=== PATIENT | male | born 1970 | race Caucasian/White ===

== ENCOUNTER 2020-01-11 13:20 | Emergency (ER) | payer OTHER ==
--- NOTE | 2020-01-11 13:24 | ERPHSYRPT ---
- History of Present Illness Time Seen by Provider: 01/11/20 13:24 Source: patient Exam Limitations: no limitations Physician History: 49-year-old white male presents with 3-day history of headache and neck pain as well as some photophobia. Patient has not had any known exposure to individuals with viral or bacterial illness. Patient only took Tylenol for his pain once yesterday. He has had no measurable fevers. He has had no nausea vomiting or diarrhea. He has no abdominal pain. Patient does not have a history of migraine headaches. Does have some body aches. Timing/Duration: day(s) (3), other (unchanged) Quality: aching Head Pain Location: global Severity of Pain-Max: mild Severity of Pain-Current: mild Recent Head Trauma: no recent headache/trauma Modifying Factors: Improves With: exposure to light, noise Associated Symptoms: neck pain, sensitive to light Previous symptoms: no prior history Allergies/Adverse Reactions: No Known Drug Allergies Allergy (Verified 01/11/20 13:35) Home Medications: Aspirin 81 mg PO DAILY 06/15/14 [History] Pravastatin Sodium 10 mg PO DAILY 05/24/15 [History] Hx Tetanus, Diphtheria Vaccination/Date Given: (MORE THAN 5) Hx Influenza Vaccination/Date Given: No Hx Pneumococcal Vaccination/Date Given: No - Review of Systems Constitutional: No Symptoms Eyes: Other (Sensitivity to light) Ears, Nose, & Throat: No Symptoms Respiratory: No Symptoms Cardiac: No Symptoms Abdominal/Gastrointestinal: No Symptoms Genitourinary Symptoms: No Symptoms Musculoskeletal: No Symptoms Skin: No Symptoms Neurological: No Symptoms Psychological: No Symptoms Endocrine: No Symptoms Hematologic/Lymphatic: No Symptoms Immunological/Allergic: No Symptoms All Other Systems: Reviewed and Negative - Past Medical History Pertinent Past Medical History: Yes Neurological History: No Pertinent History ENT History: No Pertinent History Cardiac History: High Cholesterol Respiratory History: No Pertinent History Endocrine Medical History: No Pertinent History Musculoskeletal History: No Pertinent History GI Medical History: No Pertinent History History: No Pertinent History Psycho-Social History: No Pertinent History Male Reproductive Disorders: No Pertinent History - Past Surgical History Past Surgical History: No Neuro Surgical History: No Pertinent History Cardiac: No Pertinent History Respiratory: No Pertinent History Gastrointestinal: No Pertinent History Genitourinary: No Pertinent History Musculoskeletal: No Pertinent History Male Surgical History: Vasectomy - Social History Smoking Status: Never smoker Exposure to second hand smoke: No Drug Use: none Patient Lives Alone: No - Nursing Vital Signs Nursing Vital Signs: Initial Vital Signs Temperature 98.5 F 01/11/20 13:37 Pulse Rate 74 01/11/20 13:37 Respiratory Rate 18 01/11/20 13:37 Blood Pressure 137/94 01/11/20 13:37 O2 Sat by Pulse Oximetry 100 01/11/20 13:37 Pain Scale Pain Intensity 10 - Physical Exam General Appearance: no apparent distress, alert, anxiety Eye Exam: PERRL/EOMI, eyes nml inspection Ears, Nose, Throat Exam: normal ENT inspection, moist mucous membranes Neck Exam: normal inspection, supple, full range of motion, other (No midline tenderness but tenderness on his bilateral paraspinous muscles.) Respiratory Exam: normal breath sounds, lungs clear, airway intact, No chest tenderness, No respiratory distress Cardiovascular Exam: regular rate/rhythm, normal heart sounds, normal peripheral pulses Gastrointestinal/Abdominal Exam: soft, normal bowel sounds, No tenderness Back Exam: normal inspection Extremity Exam: normal inspection, normal range of motion, pelvis stable Mental Status Exam: alert, oriented x 3, cooperative bar steward Exam: normal hearing, normal speech, PERRL, tongue midline Coordination/Gait Exam: normal finger to nose, normal gait, normal cerebellar function Motor/Sensory Exam: no motor deficit, no sensory deficit, no pronator drift Skin Exam: normal color, warm, dry Lymphatic Exam: No adenopathy SpO2 Interpretation: normal O2 Delivery: Room Air - Course Nursing assessment & vital signs reviewed: Yes Ordered Tests: Active Orders 24 hr Category Date Time Status IV Insertion STAT Care 01/11/20 14:14 Active Pulse Oximetry (ED) STAT Care 01/11/20 14:14 Active HEAD WITHOUT CONTRAST [CT] Stat Exams 01/11/20 14:14 Completed CBC W DIFF Stat Lab 01/11/20 14:14 Completed CMP Stat Lab 01/11/20 14:25 Completed Erythrocyte Sedimentation Rate Stat Lab 01/11/20 14:14 Completed Manual Differential NC Stat Lab 01/11/20 14:14 Completed Maries Screen Stat Lab 01/11/20 14:25 Completed Medication Summary Discontinued Medications Generic Name Dose Route Start Last Admin Trade Name Freq PRN Reason Stop Dose Admin Hydromorphone HCl 1 mg 01/11/20 15:49 Hydromorphone 1 Mg/Ml Ampule IV 01/11/20 15:50 STAT ONE Promethazine HCl 25 mg 01/11/20 15:49 Phenergan 25 Mg Inj IM 01/11/20 15:50 STAT ONE Lab/Rad Data: Laboratory Result Diagrams 01/11/20 14:14 01/11/20 14:25 Laboratory Results 01/11/20 01/11/20 01/11/20 Range/Units 14:25 14:25 14:25 WBC (4.0-10.5) K/mm3 RBC (4.1-5.6) M/mm3 Hgb (12.5-18.0) gm/dl Hct (42-50) % MCV (78-100) fl MCH (26-32) pg MCHC (32-36) g/dl RDW (11.5-14.0) % Plt Count (150-450) K/mm3 MPV (7.5-11.0) fl Segmented Neutrophils (36.-66.) % Band Neutrophils (0.0-2.0) % Lymphocytes (Manual) (24-44) % Monocytes (Manual) (0.0-12.0) % Eosinophils (Manual) (0.00-3.0) % Metamyelocytes % Atypical Lymphocytes % Toxic Granulation Platelet Estimate (NORMAL) RBC Morphology ESR (0-15) mm/hr Sodium 139 (137-145) mmol/L Potassium 4.3 (3.5-5.1) mmol/L Chloride 104 (98-107) mmol/L Carbon Dioxide 29 (22-30) mmol/L Anion Gap 11.4 (5-15) MEQ/L BUN 12 (9-20) mg/dL Creatinine 0.72 (0.66-1.25) mg/dL Estimated GFR > 60.0 ML/MIN Glucose 98 (74-106) mg/dL Calcium 9.2 (8.4-10.2) mg/dL Total Bilirubin 0.50 (0.2-1.3) mg/dL AST 52 (17-59) U/L ALT 45 (0-50) U/L Alkaline Phosphatase 80 (38-126) U/L Serum Total Protein 7.7 (6.3-8.2) g/dL Albumin 4.2 (3.5-5.0) g/dL Monoscreen NEGATIVE (Negative) Influenza Type A Ag NEGATIVE (NEGATIVE) Influenza Type B Ag NEGATIVE (NEGATIVE) RSV (PCR) NEGATIVE (Negative) 01/11/20 Range/Units 14:14 WBC 6.0 (4.0-10.5) K/mm3 RBC 4.92 (4.1-5.6) M/mm3 Hgb 14.3 (12.5-18.0) gm/dl Hct 44.1 (42-50) % MCV 89.6 (78-100) fl MCH 29.1 (26-32) pg MCHC 32.4 (32-36) g/dl RDW 13.2 (11.5-14.0) % Plt Count 142 L (150-450) K/mm3 MPV 11.3 H (7.5-11.0) fl Segmented Neutrophils 46 (36.-66.) % Band Neutrophils 6 H (0.0-2.0) % Lymphocytes (Manual) 28 (24-44) % Monocytes (Manual) 13 H (0.0-12.0) % Eosinophils (Manual) 2 (0.00-3.0) % Metamyelocytes 1 % Atypical Lymphocytes 4 % Toxic Granulation 1+ Platelet Estimate NORMAL (NORMAL) RBC Morphology NORMAL ESR 9 (0-15) mm/hr Sodium (137-145) mmol/L Potassium (3.5-5.1) mmol/L Chloride (98-107) mmol/L Carbon Dioxide (22-30) mmol/L Anion Gap (5-15) MEQ/L BUN (9-20) mg/dL Creatinine (0.66-1.25) mg/dL Estimated GFR ML/MIN Glucose (74-106) mg/dL Calcium (8.4-10.2) mg/dL Total Bilirubin (0.2-1.3) mg/dL AST (17-59) U/L ALT (0-50) U/L Alkaline Phosphatase (38-126) U/L Serum Total Protein (6.3-8.2) g/dL Albumin (3.5-5.0) g/dL Monoscreen (Negative) Influenza Type A Ag (NEGATIVE) Influenza Type B Ag (NEGATIVE) RSV (PCR) (Negative) - Progress Progress: improved, re-examined Air Movement: good Progress Note: 01/11/20 15:22 CAT scan of the head reveals no acute intracranial process. There is no evidence of sinus disease 01/11/20 15:51 I reviewed the patient's test results. Although I do not, clinically, feel the patient has meningitis, I told the patient several times that the only way to know for certain is to perform a lumbar puncture. Patient does not want a lumbar puncture performed at this time. He feels that he would like to try the pain medicine first and if his symptoms are not relieved or recur, then he will return to the emergency department. I discussed the risks of not performing the lumbar puncture including worsening condition possible seizure and other neurologic maladies. Patient states he understands and will sign a refusal of treatment at this time but will return if his symptoms worsen or recur. Blood Culture(s) Obtained: No Antibiotics given: No Counseled pt/family regarding: lab results, diagnosis, need for follow-up, rad results - Departure Departure Disposition: Home Clinical Impression: Headache Condition: Stable Critical Care Time: No Referrals: DOCTOR,NO FAMILY [Primary Care Provider] - Additional Instructions: Use Tylenol and ibuprofen for your headache and neck pain. If symptoms do not improve or worsen return to the emergency room.
[2020-01-11 14:28] LABS: Hematocrit 44.1 % (42-50); Hemoglobin 14.3 gm/dl (12.5-18.0); Mean Cell Volume 89.6 fl (78-100); Mean Corpuscular Hemoglobin 29.1 pg (26-32); Mean Corpuscular Hgb Concent. 32.4 g/dl (32-36); Mean Platelet Volume 11.3 fl (7.5-11.0); Platelet Count 142 K/mm3 (150-450); Red Blood Count 4.92 M/mm3 (4.1-5.6); Red Cell Distribution Width 13.2 % (11.5-14.0)
--- NOTE | 2020-01-11 14:40 | XRAY ---
Indication: Headache and sinus pain. Multiple contiguous axial images obtained through the head without contrast. Comparison: May 06, 2013. Again normal appearing brain parenchyma, ventricles, and bony calvarium. Visualized paranasal sinuses and mastoid air cells are clear. Impression: Continued normal CT head without contrast exam.
[2020-01-11 14:45] LABS: ALBUMIN 4.2 g/dL (3.5-5.0); ALKALINE PHOSPHATASE 80 U/L (38-126); ANION GAP 11.4 MEQ/L (5-15); BLOOD UREA NITROGEN 12 mg/dL (9-20); CHLORIDE 104 mmol/L (98-107); Calcium 9.2 mg/dL (8.4-10.2); Carbon Dioxide 29 mmol/L (22-30); Creatinine 1 0.72 mg/dL (0.66-1.25); Glucose 98 mg/dL (74-106); Potassium 4.3 mmol/L (3.5-5.1); SGOT/AST 52 U/L (17-59); SGPT/ALT 45 U/L (0-50); SODIUM 139 mmol/L (137-145); Total Protein 7.7 g/dL (6.3-8.2)
[2020-01-11 15:02] LABS: Erythrocyte Sedimentation Rate 9 mm/hr (0-15)
[2020-01-11 15:04] LABS: ATYPICAL LYMPHS 4 %; BAND 6 % (0.0-2.0); Eosinophil 2 % (0.00-3.0); Lymphocytes 28 % (24-44); Metamyelocyte 1 %; Monocyte 13 % (0.0-12.0); Neutrophils 46 % (36.-66.); Total Cells Counted 100
[2020-01-11 15:05] LABS: Platelet Estimate NORMAL (NORMAL); Toxic Granulation 1+
[2020-01-11 15:32] LABS: INFLUENZA A NEGATIVE (NEGATIVE); INFLUENZA B NEGATIVE (NEGATIVE); RESPIRATORY SYNCTIAL VIRUS NEGATIVE (Negative)
[2020-01-11] MEDS ORDERED: Hydromorphone 1 mg/ml Ampule IV ONE (15:49)
[2020-01-11] MEDS ORDERED: Phenergan 25 MG INJ IM ONE (15:49)
[2020-01-11] MEDS ORDERED: Phenergan 25 MG INJ ONE (15:57)
[2020-01-11] MEDS ORDERED: Hydromorphone 1 mg/ml Ampule ONE (15:57)
[2020-01-11 16:10] VITALS: BP 137/87; PULSE 66; O2SAT 95
== END 2020-01-11 16:25 | disposition home or self-care (01) ==
LOC: ED 13:20
DX: R51 Headache (principal); M54.2 Cervicalgia; E78.00 Pure hypercholesterolemia, unspecified
CPT/HCPCS: 36000; 36415; 70450; 80053; 85025; 85652; 86308; 87631; 94760; 96372; 96374; 99284; J1170; J2550

== ENCOUNTER 2021-06-18 21:54 | Emergency (ER) | payer OTHER ==
[2021-06-18] MEDS ORDERED: XYLOCAINE 1% HCL 20 ML MDV ONE (22:02)
[2021-06-18 22:03] VITALS: O2SAT 97
[2021-06-18] MEDS: XYLOCAINE 1% HCL 20 ML MDV IJ ONE (22:17)
[2021-06-18] MEDS ORDERED: BACIGUENT PACKET ONE (22:19)
[2021-06-18] MEDS: BACIGUENT PACKET TP ONE (22:20)
--- NOTE | 2021-06-18 22:26 | ERPHSYRPT ---
- History of Present Illness Time Seen by Provider: 06/18/21 22:00 Source: patient Exam Limitations: no limitations Patient Subjective Stated Complaint: pt states, "I cut my leg with sheet metal. It continued to ooze so I came in". Triage Nursing Assessment: pt cut rt lateral lower leg on a piece of sheet metal around noon today. It continues to ooze so pt came in to ER. Laceration is 3cm L x 0.3cm W x 1.0 cm D. Physician History: Patient is a 50-year-old male presents to our emergency department with a laceration to the lateral aspect of his right lower leg. Patient stated lacerated his leg on sheet-metal. Injury occurred just prior to arrival. No associated numbness tingling or weakness. Tetanus is up-to-date. No active bleeding. No other injuries reported. Patient is otherwise healthy. He voices no other complaints or concerns at this time. Timing/Duration: today Severity: mild Modifying Factors: Improves With: nothing Associated Symptoms: denies symptoms Allergies/Adverse Reactions: No Known Drug Allergies Allergy (Verified 06/18/21 22:12) Home Medications: Aspirin 81 mg PO DAILY 06/15/14 [History] Pravastatin Sodium 10 mg PO DAILY 05/24/15 [History] Hx Tetanus, Diphtheria Vaccination/Date Given: Yes Hx Influenza Vaccination/Date Given: No Hx Pneumococcal Vaccination/Date Given: No Immunizations Up to Date: Yes Travel Risk - International Travel Have you traveled outside of the country in past 3 weeks: No - Coronavirus Screening Are you exhibiting any of the following symptoms?: No Close contact with a COVID-19 positive Pt in past 14-21 Days: No - Vaccine Status Have you recieved a Covid-19 vaccination: Yes Principal Quality Engineer: [employer] - Review of Systems Constitutional: No Symptoms, No Fever, No Chills Eyes: No Symptoms Ears, Nose, & Throat: No Symptoms Respiratory: No Symptoms, No Cough, No Dyspnea Cardiac: No Symptoms, No Chest Pain, No Edema, No Syncope Abdominal/Gastrointestinal: No Symptoms, No Abdominal Pain, No Nausea, No Vomiting, No Diarrhea Genitourinary Symptoms: No Symptoms, No Dysuria Musculoskeletal: No Symptoms, No Back Pain, No Neck Pain Skin: No Symptoms, No Rash Neurological: No Symptoms, No Dizziness, No Focal Weakness, No Sensory Changes Psychological: No Symptoms Endocrine: No Symptoms Hematologic/Lymphatic: No Symptoms Immunological/Allergic: No Symptoms All Other Systems: Reviewed and Negative - Past Medical History Pertinent Past Medical History: Yes Neurological History: No Pertinent History ENT History: No Pertinent History Cardiac History: High Cholesterol Respiratory History: No Pertinent History Endocrine Medical History: No Pertinent History Musculoskeletal History: No Pertinent History GI Medical History: No Pertinent History History: No Pertinent History Psycho-Social History: No Pertinent History Male Reproductive Disorders: No Pertinent History - Past Surgical History Past Surgical History: No Neuro Surgical History: No Pertinent History Cardiac: No Pertinent History Respiratory: No Pertinent History Gastrointestinal: No Pertinent History Genitourinary: No Pertinent History Musculoskeletal: No Pertinent History Male Surgical History: Vasectomy - Social History Smoking Status: Never smoker Exposure to second hand smoke: No Drug Use: none Patient Lives Alone: No - Nursing Vital Signs Nursing Vital Signs: Initial Vital Signs Temperature 98.4 F 06/18/21 21:55 Pulse Rate 64 06/18/21 21:55 Respiratory Rate 18 06/18/21 21:55 Blood Pressure 125/90 06/18/21 21:55 O2 Sat by Pulse Oximetry 97 06/18/21 21:55 Pain Scale Pain Intensity 0 - Physical Exam General Appearance: no apparent distress, alert Eye Exam: PERRL/EOMI, eyes nml inspection Ears, Nose, Throat Exam: normal ENT inspection, TMs normal, pharynx normal, moist mucous membranes Neck Exam: normal inspection, non-tender, supple, full range of motion Respiratory Exam: normal breath sounds, lungs clear, No respiratory distress Cardiovascular Exam: regular rate/rhythm, normal heart sounds, normal peripheral pulses Gastrointestinal/Abdomen Exam: soft, normal bowel sounds, No tenderness, No mass Back Exam: normal inspection, normal range of motion, No CVA tenderness, No vertebral tenderness Extremity Exam: normal inspection, normal range of motion, pelvis stable Neurologic Exam: alert, oriented x 3, cooperative, normal mood/affect, nml cerebellar function, nml station & gait, sensation nml, No motor deficits Skin Exam: normal color, warm, dry, No rash Lymphatic Exam: No adenopathy SpO2 Interpretation: normal SpO2: 97 O2 Delivery: Room Air Procedures - Laceration/Wound Repair Right Lower Other Time of Procedure: 22:28 Wound Location: Right Wound Length (cm): 3 Wound's Depth, Shape: superficial Wound Explored: clean Irrigated: Yes Chaya Prep: Yes Anesthesia: local, 1% Lidocaine Wound Debrided: minimal Wound Repaired With: Socrates Number of Sutures: 7 Layer Closure?: No Sterile Dressing Applied?: Yes Splint Applied?: No Sling Applied?: No Progress: Neurovascular intact post post procedure. 06/18/21 22:29 Ordered Tests: Active Orders 24 hr Category Date Time Status Wound Care STAT Care 06/18/21 22:17 Active Medication Summary Discontinued Medications Generic Name Dose Route Start Last Admin Trade Name Melida PRN Reason Stop Dose Admin Bacitracin Zinc 0.9 gm 06/18/21 22:17 Baciguent Packet TP 06/18/21 22:18 STAT ONE Lidocaine HCl Confirm 06/18/21 22:02 Xylocaine 1% Hcl 20 Ml Mdv Administered 06/18/21 22:03 Dose 10 ml .ROUTE .STK-MED ONE Lidocaine HCl 10 ml 06/18/21 22:12 06/18/21 22:17 Xylocaine 1% Hcl 20 Ml Mdv IJ 06/18/21 22:13 10 ml STAT ONE Administration - Progress Progress: improved Progress Note: Duration was repaired with 7 socrates. No complications. No indication for antibiotics at this time. Tetanus up-to-date. Patient agrees to follow-up with primary care doctor within 48 hours for wound check. Sutures may be removed in 7 to 10 days. All questions were answered. Patient voices no other complaints or concerns at this time will discharge home. 06/18/21 22:29 Counseled pt/family regarding: diagnosis, need for follow-up - Departure Departure Disposition: Home Clinical Impression: Laceration Condition: Stable Critical Care Time: No Instructions: Wound Care (DC) Additional Instructions: Discharge/Care Plan ASHLEY HANNON was seen on 06/18/21 in the Emergency Room. The patient was counseled regarding Diagnosis,Lab results, Imaging studies, need for follow up and when to return to the Emergency Room. Prescriptions given: Discharge Note I have spoken with the patient and/or caregivers. I have explained the patient's condition, diagnosis and treatment plan based on the information available to me at this time. I have answered the patient's and/or caregiver's questions and addressed any concerns. The patient and/or caregivers have as good understanding of the patient's diagnosis, condition and treatment plan as can be expected at this point. The vital signs have been stable. The patient's condition is stable and appropriate for discharge from the emergency department. The patient will pursue further outpatient evaluation with the primary care physician or other designated or consulting physician as outlined in the discharge instructions. The patient and/or caregivers are agreeable to this plan of care and follow-up instructions have been explained in detail. The patient and/or caregivers have received these instruction. The patient/and or caregivers are aware that any significant change in condition or worsening of symptoms should prompt an immediate return to this or the closest emergency department or call 911.
[2021-06-18 22:30] VITALS: BP 135/92; PULSE 76
== END 2021-06-18 22:30 | disposition home or self-care (01) ==
LOC: ED 21:54
DX: S81.811A Laceration without foreign body, right lower leg, initial encounter (principal); W26.8XXA Contact with other sharp object(s), not elsewhere classified, initial encounter; Y93.89 Activity, other specified; Y92.89 Other specified places as the place of occurrence of the external cause; Y99.8 Other external cause status
CPT/HCPCS: 12002; 96372; 99283; A9270-GY

== ENCOUNTER 2023-04-02 07:57 | Day surgery (SDC) | payer OTHER ==
--- NOTE | 2023-04-01 11:24 | HP ---
DATE OF SURGERY: 04/02/2023 HISTORY OF PRESENT ILLNESS: The patient is a 52-year-old male who presents with left inguinal hernia. He has left groin tightness and is seeing a bulge. He wrapped this up. It is worse with eating. Pain from work since he has been working and do not want to eat. He wears a tool belt and having it lay on it hurts. PAST MEDICAL HISTORY: Hyperlipidemia. PAST SURGICAL HISTORY: Cataracts. ALLERGIES: NKDA. MEDICATIONS: Atorvastatin. FAMILY HISTORY: None. SOCIAL HISTORY: Occasional alcohol. REVIEW OF SYSTEMS: CONSTITUTIONAL: Denies fever or chills. CHEST: Denies shortness of breath. CVS: Denies chest pain. ABDOMEN: Denies abdominal pain. PHYSICAL EXAMINATION: GENERAL: No acute distress. CHEST: Nonlabored. No shortness of breath. CVS: Regular rate and rhythm. ABDOMEN: Soft. IMPRESSION: Small left inguinal hernia. PLAN: Left inguinal repair with possible mesh with Dr. Glenn Linda. As dictated by Loreto Grey NP.
[2023-04-02] MEDS ORDERED: Lactated Ringers 1,000 ML IV ONE ×2 (08:19→09:43)
[2023-04-02] MEDS ORDERED: CEFAZOLIN 2 GM-D5W BAG** 2 GM/50 ML ML IV ONE (08:19)
[2023-04-02] MEDS: Lactated Ringers 1,000 ML IV SCH ×2 (08:41→09:46)
[2023-04-02 09:03] LABS: BASOPHIL % 0.7 % (0.0-0.4); Basophil (Absolute #) 0.04 x10^3/uL (0-0.4); Eosinophil % 1.9 % (0.00-5.0); Eosinophil (Absolute #) 0.11 x10^3/uL (0-0.5); Hematocrit 47.1 % (42-50); Hemoglobin 15.3 g/dL (12.5-18.0); IMMATURE GRAN # 0.02 x10^3u/L (0.00-0.03); IMMATURE GRAN % 0.3 % (0.00-0.4); Lymphocytes % 31.1 % (24.0-44.0); Mean Cell Volume 88.7 fL (78-100); Mean Corpuscular Hemoglobin 28.8 pg (26-32); Mean Corpuscular Hgb Concent. 32.5 g/dL (32-36); Mean Platelet Volume 11.1 fL (7.5-11.0); Monocyte (Absolute #) 0.82 x10^3/uL (0.0-1.3); Monocytes % 14.2 % (0.0-12.0); Neutrophil % 51.8 % (36.0-66.0); Platelet Count 167 x10^3/uL (150-450); Red Blood Count 5.31 x10^6/uL (4.1-5.6); Red Cell Distribution Width 12.7 % (11.5-14.0); White Blood Count 5.8 x10^3/uL (4.0-10.5)
[2023-04-02 09:09] LABS: ALBUMIN 4.5 g/dL (3.5-5.0); ALKALINE PHOSPHATASE 77 U/L (38-126); ANION GAP 14.8 MEQ/L (5-15); BLOOD UREA NITROGEN 14 mg/dL (9-20); CHLORIDE 102 mmol/L (98-107); Carbon Dioxide 28 mmol/L (22-30); Creatinine 1 0.74 mg/dL (0.66-1.25); EST GLOMERULAR FILTRATION RATE > 60.0 ML/MIN; Glucose 96 mg/dL (74-106); Potassium 4.7 mmol/L (3.5-5.1); SGOT/AST 34 U/L (17-59); SGPT/ALT 26 U/L (0-50); SODIUM 139 mmol/L (137-145)
[2023-04-02] MEDS ORDERED: KEFZOL 1 GM ONE (10:01)
[2023-04-02] MEDS ORDERED: Sensorcaine 0.25% 10 ML ONE (10:01)
[2023-04-02] MEDS ORDERED: BRIDION 200MG/2ML IV ONE (11:32)
[2023-04-02] MEDS ORDERED: Xylocaine-Mpf 2% 5 Ml Vial ONE ×2 (11:32→11:39)
[2023-04-02] MEDS ORDERED: SUBLIMAZE 100 MCG/2 ML ONE ×2 (11:32→13:53)
[2023-04-02] MEDS ORDERED: Zemuron 100 MG/10 ML ONE (11:32)
[2023-04-02] MEDS ORDERED: Decadron 4 MG INJ ONE ×2 (11:32→11:38)
[2023-04-02] MEDS ORDERED: Zofran 4 MG/2 ML VIAL ONE (11:32)
[2023-04-02] MEDS ORDERED: DIPRIVAN 200 MG/20 ML IV ONE (11:32)
[2023-04-02] MEDS ORDERED: TORAdol 30 mg Injection ONE (11:32)
[2023-04-02] MEDS ORDERED: Marcaine 0.5%/Epinephrine 10 ML ONE (11:38)
[2023-04-02] MEDS ORDERED: DEXMEDETOMIDINE 80 MCG/20ML-NS IV ONE (11:38)
[2023-04-02] MEDS ORDERED: CEFAZOLIN 2 GM-D5W BAG** 2 GM/50 ML ML IV SCH (14:00)
[2023-04-02] MEDS ORDERED: Hydromorphone 1 mg/ml Injection ONE (14:08)
--- NOTE | 2023-04-02 14:49 | OP ---
SURGERY DATE/TIME: 04/02/2023 1223 PREOPERATIVE DIAGNOSIS: Symptomatic left inguinal hernia. POSTOPERATIVE DIAGNOSIS: Symptomatic left inguinal hernia. PROCEDURE: Left inguinal herniorrhaphy with mesh. SURGEON: Glenn Linda M.D. TAXATION CONSULTANT: Al Cadena M.D. ANESTHESIA: General. COMPLICATIONS: None. CONDITION: Stable. INDICATION: The patient has symptomatic hernia left side marked preoperatively. DESCRIPTION OF PROCEDURE: Taken to surgery. Routine prep and drape. Time out performed. 0.25% Marcaine. Curvilinear incision. External oblique opened. A 6 inch indirect hernia sac highly ligated, good visualization with no sliding component. There was just a very small direct hernia. 1 x 4 mesh trimmed to size secured with 0 Prolene in Red's ligament-type fashion. The internal ring was one clamp tight. The ilioinguinal nerve and the cord were placed back in natural position. External oblique closed with 2-0 Vicryl. Meche fascia closed with 3-0 Vicryl. Skin closed with 4-0 Vicryl. Steri-Strips applied. Sterile dressing applied. The patient tolerated the procedure satisfactorily. Findings discussed with the family in the waiting room.
[2023-04-02 14:50] VITALS: BP 104/68
[2023-04-02 15:06] VITALS: PULSE 66; O2SAT 94
== END 2023-04-02 15:25 | disposition home or self-care (01) ==
LOC: SDC 07:57
PROVIDERS: ATTEND Surgery
DX: K40.90 Unilateral inguinal hernia, without obstruction or gangrene, not specified as recurrent (principal)
CPT/HCPCS: 36415; 80053; 85025; J0690; J1100; J1170; J1885; J2405; J2704; J3010